=== PATIENT | male | born 1960 | race Caucasian/White ===

== ENCOUNTER 2024-04-03 11:58 | Emergency (ER) | payer BC ==
[~2024-04-03] VITALS: Ht 175.3 cm; Wt 63.6 kg
[2024-04-03] MEDS: TETanus/Pertussis (Acell)/Diphther VAC/PF (Tdap-Adult) 0.5ml syringe IMVAC ONE (12:24)
[2024-04-03] MEDS: LIDOcaine 1% W/epiNEPHrine 1:100,000 20ml vial SQ ONE (12:27)
[2024-04-03 13:23] VITALS: BP 124/76; PULSE 74; RESP 16; TEMP 98.2; O2SAT 97
== END 2024-04-03 13:25 | disposition home or self-care (01) ==
LOC: ER 11:59
DX: S61.412A Laceration without foreign body of left hand, initial encounter (principal); X58.XXXA Exposure to other specified factors, initial encounter; Y93.89 Activity, other specified; Y92.89 Other specified places as the place of occurrence of the external cause; Y99.8 Other external cause status
CPT/HCPCS: 12002; 90471; 90715; 99283; A6222; A6258; A6449